=== PATIENT | male | born 1940 ===

== ENCOUNTER 2024-12-21 09:28 | Outpatient (CLI) | payer OTHER, SELFPAY | END 2024-12-21 09:29 | disposition home or self-care (01) | PROVIDERS: PCP Physician Assistant Medical; Visit Provider Physician Assistant Medical | DX: D64.9 Anemia, unspecified (principal); R41.89 Other symptoms and signs involving cognitive functions and awareness; R20.2 Paresthesia of skin; I48.91 Unspecified atrial fibrillation; N40.0 Benign prostatic hyperplasia without lower urinary tract symptoms; R03.0 Elevated blood-pressure reading, without diagnosis of hypertension; R33.9 Retention of urine, unspecified | CPT/HCPCS: 80053; 82306; 82525; 82607; 82746; 83540; 83550; 83785; 84165; 84425; 84443 ==

== ENCOUNTER 2025-05-04 09:23 | Outpatient (CLI) | payer OTHER, SELFPAY ==
--- NOTE | 2025-05-04 10:15 | CRLHL7_ITS ---
For Patients: As a result of the Century Cures Act, medical imaging exams and procedure reports are released immediately into your electronic medical record. You may view this report before your referring provider. If you have questions, please contact your health care provider. INDICATION: Meningioma. COMPARISON: None available at time of interpretation. TECHNIQUE: Multiplanar T1, T2, FLAIR and diffusion-weighted imaging. Post gadolinium T1 weighted the sequences. Gadolinium 15 cc IV. FINDINGS: Mild generalized volume loss. Scattered foci of T2/FLAIR signal hypertensive within the white matter both supra hemispheres a nonspecific and may represent chronic deep white matter small ischemic changes. No intracranial hemorrhage. No abnormal ventricular dilatation. Intracranial vascular flow voids are preserved. No mass effect. No midline shift. No restricted diffusion to suggest acute ischemia. There is a tiny focus of increased signal intensity on DWI within the posterior right frontal lobe (series 3, image 41) but also relative increased signal intensity on the ADC map (series 4, image 17). Finding recur presents T2 shine through artifact. Post gadolinium imaging demonstrates a enhancing extra-axial mass along the right tentorium measuring 18 x 14 x 12 mm (transverse by AP by cephalocaudal) consistent with a meningioma. There is no edema in the immediately adjacent brain parenchyma. This meningioma closely abuts and partially extends into the straight sinus. No abnormal enhancement or enhancing lesions elsewhere. Orbits are unremarkable. Normal appearing sella. Visualized paranasal sinuses and mastoid air cells are unremarkable. IMPRESSION: 1. 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 No edema in the immediately adjacent brain parenchyma. 2. No abnormal enhancement elsewhere. 3. No acute intracranial abnormality Dictated by Jesu Alicia MD @ 05/11/2025 6:50:04 AM (Electronically Signed)
== END 2025-05-04 09:24 | disposition home or self-care (01) ==
PROVIDERS: PCP Physician Assistant Medical; Visit Provider Physician Assistant Medical
DX: D32.9 Benign neoplasm of meninges, unspecified (principal)
CPT/HCPCS: 70553; A9575

== ENCOUNTER 2025-05-08 12:19 | Outpatient (CLI) | payer OTHER, SELFPAY ==
--- NOTE | 2025-05-08 14:30 | CRLHL7_ITS ---
For Patients: As a result of the Century Cures Act, medical imaging exams and procedure reports are released immediately into your electronic medical record. You may view this report before your referring provider. If you have questions, please contact your health care provider. Indication: Low back pain. Technique: Noncontrast CT of the lumbar spine with multiplanar reconstruction utilizing bone and soft tissue algorithms. Comparison: Correlated with lumbar spine radiographs dated 01/19/2025. Findings: Lumbar levoscoliosis with apex at the L4 level. Grade 1 3 mm anterolisthesis at L5-S1. No acute fracture or traumatic subluxation. No lytic or blastic lesion. Advanced multilevel disc height loss with associated vacuum disc phenomenon. Moderate aortoiliac atherosclerotic disease. T12-L1: Shallow symmetric disc bulge and posterior endplate osteophytic ridging. Moderate left facet joint arthrosis. No significant spinal canal or neural foraminal stenosis. L1-L2: Posterior endplate osteophytic ridging resulting in mild spinal canal stenosis. Mild-moderate left and no significant right neural foraminal narrowing. L2-L3: Symmetric disc bulge and ligamentum flavum hypertrophy resulting in mild spinal canal stenosis. Mild left and no significant right neural foraminal narrowing. L3-L4: Posterior endplate osteophytic ridging contributing to mild spinal canal stenosis. Advanced right facet joint arthrosis. Mild bilateral neural foraminal narrowing. L4-L5: Posterior endplate osteophytic ridging. Advanced right facet joint arthrosis. Mild spinal canal stenosis, severe right neural foraminal narrowing, and mild left neural foraminal narrowing. L5-S1: Symmetric disc bulge/uncovering. Moderate facet joint arthrosis. No significant spinal canal stenosis. Mild bilateral neural foraminal narrowing. Impression: 1. No acute fracture or traumatic subluxation. 2. Lumbar levoscoliosis with apex at the L4 level. 3. At L1-L2, mild spinal canal stenosis and mild-moderate left neural foraminal narrowing. 4. At L2-L3, mild spinal canal stenosis and left neural foraminal narrowing. 5. At L3-L4, mild spinal canal stenosis and bilateral neural foraminal narrowing. 6. At L4-L5, mild spinal canal stenosis and severe right neural foraminal narrowing. Please note that all CT scans at this facility use dose modulation, iterative reconstruction, and/or weight-based dosing when appropriate to reduce radiation dose to as low as reasonably achievable. Dictated by River Alicia MD @ 05/09/2025 12:02:34 PM (Electronically Signed)
--- NOTE | 2025-05-08 15:00 | CRLHL7_ITS ---
For Patients: As a result of the Cures Act, medical imaging exams and procedure reports are released immediately into your electronic medical record. You may view this report before your referring provider. If you have questions, please contact your health care provider. INDICATION Pulmonary hypertension. Pulmonary nodules. Unspecified atrial fibrillation. TECHNIQUE Noncontrast chest CT. COMPARISON Correlation is made with a two-view chest x-ray 01/19/2025. Correlation is made with an abdominopelvic CT 05/08/2025 which included the lung bases. FINDINGS Benign calcified granulomas in each lung. Calcified granulomas in the liver and spleen. Benign calcified normal sized hilar/mediastinal lymph nodes all compatible with a granulomatous process. No acute cardiopulmonary process is identified. Dense vascular calcifications scattered throughout the aorta and coronary artery distribution compatible with coronary arterial disease. The atria appear to be enlarged. Please correlate with any recent/prior echocardiogram. No thoracic lymphadenopathy. The included trachea and mainstem bronchi, as well as the thyroid gland are within normal limits. The central pulmonary arterial tree is nonenlarged. Images of the upper abdomen demonstrate normal adrenal glands. Multilevel degenerative disc disease of the included thoracolumbar spine with a lower thoracic/lumbar scoliotic curvature convex towards the right. IMPRESSION 1. Benign granulomatous changes within the lungs, liver, and spleen. 2. The central pulmonary arterial tree does not appear to be enlarged. 3. Atrial enlargement. Please correlate with any recent echocardiogram. Please note that all CT scans at this facility use dose modulation, iterative reconstruction and/or weight-based dosing when appropriate to reduce radiation dose to as low as reasonably achievable. REYES HAWKINS M.D. Diagnostic/Nuclear Medicine Radiologist [email or web address] DEBORAH:monica anderson/Dictated by: Reyes Hawkins MD @ 05/09/2025 11:58:00 AM (Electronically Signed)
== END 2025-05-08 12:20 | disposition home or self-care (01) ==
PROVIDERS: PCP Physician Assistant Medical; Visit Provider Physician Assistant Medical
DX: I48.91 Unspecified atrial fibrillation (principal); I51.7 Cardiomegaly; I35.0 Nonrheumatic aortic (valve) stenosis; N20.0 Calculus of kidney; N32.3 Diverticulum of bladder; R93.7 Abnormal findings on diagnostic imaging of other parts of musculoskeletal system; I27.20 Pulmonary hypertension, unspecified; R91.8 Other nonspecific abnormal finding of lung field; M54.50 Low back pain, unspecified; M48.061 Spinal stenosis, lumbar region without neurogenic claudication
CPT/HCPCS: 71250; 72131; 93306

== ENCOUNTER 2025-05-08 13:23 | Outpatient (CLI) | payer OTHER, SELFPAY ==
--- NOTE | 2025-05-08 14:30 | CRLHL7_ITS ---
For Patients: As a result of the Century Cures Act, medical imaging exams and procedure reports are released immediately into your electronic medical record. You may view this report before your referring provider. If you have questions, please contact your health care provider. INDICATION: Renal calculus. History of hernia repair x 2. History of hemorrhoids. TECHNIQUE: Noncontrast CT of the abdomen and pelvis. COMPARISON: None. FINDINGS: No renal or ureteral stones. There is a posterolateral right-sided urinary bladder diverticulum measuring 3.3 x 4.5 cm containing an 8 mm stone. There is a smaller left lateral urinary bladder diverticulum on image 110 series 3 measuring 1.6 x 3.3 cm. Prostatic impingement upon the urinary bladder base. Slight bladder wall thickening may reflect some degree of underdistention or minor bladder wall trabeculation. Dense arterial vascular calcifications within the chest, abdomen and pelvis. Granulomatous changes at each lung base with calcified granulomas in the liver and spleen. No hepatosplenomegaly. No biliary ductal dilatation. The unenhanced pancreas, partly contracted gallbladder, and adrenal glands are within normal limits. No hydronephrosis. Dense arterial vascular calcification within a tortuous abdominal aorta and iliac arteries. There is no evidence for bowel obstruction or ileus. No ascites or lymphadenopathy. Sigmoid diverticulosis without diverticulitis. Postsurgical change in the lower anterior abdominal wall, likely from hernia repair. Metallic clips in the hemiscrotum are likely related to vasectomy. Thoracolumbar scoliosis. Multilevel degenerative disc disease of the lower thoracic/lumbar spine. Marked narrowing/[id number] at L4. Multilevel degenerative facet arthropathy. IMPRESSION: 1. Two urinary bladder diverticula, right greater than left, with an 8 mm stone in the right posterior bladder diverticulum. 2. No hydronephrosis. 3. Granulomatous changes of the lungs, liver and spleen. 4. Postsurgical change in the lower anterior abdominal wall and within each hemiscrotum. MARICHUY HAWKINS M.D. Diagnostic/Nuclear Medicine Radiologist [email or web address] Transcribed: 12:[address]/Dictated by: Marichuy Hawkins MD @ 05/09/2025 11:09:00 AM (Electronically Signed)
== END 2025-05-08 13:24 | disposition home or self-care (01) ==
LOC: CT 13:23
PROVIDERS: PCP Physician Assistant Medical; Visit Provider Urology
DX: N20.0 Calculus of kidney (principal); N32.3 Diverticulum of bladder
CPT/HCPCS: 74176

== ENCOUNTER 2025-05-10 08:02 | Outpatient (CLI) | payer OTHER, SELFPAY | END 2025-05-10 08:03 | disposition home or self-care (01) | LOC: NFLDREF 05-13 16:28 | PROVIDERS: PCP Physician Assistant Medical; Referring Provider Physician Assistant Medical; Visit Provider Physician Assistant Medical | DX: Z00.00 Encounter for general adult medical examination without abnormal findings (principal); E78.5 Hyperlipidemia, unspecified; R68.89 Other general symptoms and signs; E55.9 Vitamin D deficiency, unspecified; Z79.899 Other long term (current) drug therapy; Z12.5 Encounter for screening for malignant neoplasm of prostate | CPT/HCPCS: 80053; 80061; 82306; 82607; G0103 ==